=== PATIENT | female | born 1985 | race Caucasian/White ===

== ENCOUNTER 2016-09-21 11:01 | Emergency (ER) | payer MEDICAID, OTHER ==
[~2016-09-21] VITALS: Wt 57.0 kg
[~2016-09-21 11:01] MED LIST: ACET-915 PO
[2016-09-21] MEDS ORDERED: ONDANSETRON (ODT) 4 MG TAB ODT STA (11:58)
[2016-09-21] MEDS ORDERED: ACETAMINOPHEN 500 MG TAB PO STA (11:58)
[2016-09-21] MEDS ORDERED: FAMOTIDINE 20 MG TAB PO ONE (12:00)
--- NOTE | 2016-09-21 12:10 | ERD ---
ER Documentation Chief Complaint Date/Time DATE: 09/21/16 TIME: 12:08 Chief Complaint abd pain w n/v/d HPI This a 30-year-old female who presents to the emergency department today complaining of abdominal pain with vomiting and diarrhea for the past 2 days. States she is taking Pepto-Bismol with limited improvement in symptoms. States that she ate a street taco and started having abdominal pain and vomiting after that. Denies any fevers or chills, dysuria. ROS All systems reviewed and are negative except as per history of present illness. Medications Home Meds Active Scripts Loperamide Hcl* (Imodium*) 2 Mg Capsule, 2 MG PO .AFTER EA LOOSE BM Y for DIARRHEA, #6 TAB Prov:YANI KELLY PA-C 09/21/16 Dicyclomine Hcl* (Bentyl*) 10 Mg Capsule, 10 MG PO QID, #30 CAP Prov:YANI KELLY PA-C 09/21/16 Famotidine* (Pepcid*) 20 Mg Tablet, 20 MG PO BID for 10 Days, TAB Prov:YANI KELLY PA-C 09/21/16 Acetaminophen* (Tylophen*) 500 Mg Capsule, 1 CAP PO Q6H Y for PAIN AND OR ELEVATED TEMP, #30 CAP Prov:YANI KELLY PA-C 09/21/16 Ondansetron Hcl* (Zofran*) 4 Mg Tablet, 4 MG PO Q6H for NAUSEA AND/OR VOMITING, #30 TAB Prov:YANI KELLY PA-C 09/21/16 Reported Medications Acetaminophen* (Tylenol*) 325 Mg Tab, 325 MG PO Q8 05/27/12 Allergies Allergies: Coded Allergies: Pork/Porcine Containing Products (Verified Allergy, Unknown, 09/21/16) PMhx/Soc History of Surgery: Yes ( X 1) Anesthesia Reaction: No Hx Neurological Disorder: No Hx Respiratory Disorders: No Hx Cardiac Disorders: No Hx Psychiatric Problems: No Hx Miscellaneous Medical Probl: No Hx Alcohol Use: No Hx Substance Use: No Hx Tobacco Use: No Smoking Status: Never smoker Physical Exam Vitals Vital Signs Date Time Temp Pulse Resp B/P Pulse Ox O2 Delivery O2 Flow Rate FiO2 09/21/16 11:02 98.5 82 20 101/67 99 Physical Exam Const: No acute distress Head: Atraumatic Eyes: Normal Conjunctiva ENT: Normal External Ears, Nose and Mouth. Neck: Full range of motion..~ No meningismus. Resp: Clear to auscultation bilaterally Cardio: Regular rate and rhythm, no murmurs Abd: Soft, epigastric and periumbilical tenderness non distended. Normal bowel sounds. No right lower quadrant pain. No tenderness McBurney's. No left lower quadrant pain. Skin: No petechiae or rashes Neur: Awake and alert Psych: Normal Mood and Affect Results 24 hrs Laboratory Tests Test 09/21/16 12:14 Urine Color LT. YELLOW Urine Clarity CLEAR Urine pH 5.5 Urine Specific [place] 1.025 Urine Ketones NEGATIVE Urine Nitrite NEGATIVE Urine Bilirubin NEGATIVE Urine Urobilinogen 0.2 E.U./dL Urine Leukocyte Esterase NEGATIVE Urine Microscopic RBC 2-5/HPF Urine Microscopic WBC 0-2/HPF Urine Squamous Epithelial Cells MODERATE Urine Bacteria FEW Urine Hemoglobin 2+ Urine Glucose NEGATIVE% Urine Total Protein NEGATIVE Current Medications Medications (Trade) Dose Ordered Sig/Yady Route PRN Reason Start Time Stop Time Status Last Admin Dose Admin Ondansetron HCl (Zofran Odt) 4 mg ONCE STAT ODT 09/21/16 11:58 09/21/16 11:59 DC 09/21/16 12:08 Famotidine (Pepcid) 20 mg ONCE ONCE PO 09/21/16 12:00 09/21/16 12:01 DC 09/21/16 12:08 Acetaminophen (Tylenol Tab) 500 mg ONCE STAT PO 09/21/16 11:58 09/21/16 11:59 DC 09/21/16 12:08 Procedures/MDM This a 30-year-old female who presents the emergency department today complaining of abdominal pain, vomiting and diarrhea for the past 2 days that started after patient ate a street taco. Patient had epigastric and periumbilical pain on physical exam. She has no right lower quadrant pain. No tenderness McBurney's. No right upper quadrant pain. Low suspicion for acute surgical abdomen. Do not feel the patient requires laboratory workup or imaging at this time. I did obtain a UA and urine test UA is negative for infection. Urine test is negative Patient was given Zofran, Pepcid and Tylenol here in the emergency department and reported feeling better. She will be given a prescription for Pepcid, Tylenol, Zofran Bentyl and Imodium for home. At this time the patient is stable for discharge and outpatient management. Patient should follow up with their PCP in the next 1-2 days. They may return to the emergency department sooner for any persistent or worsening of symptoms. Patient understood and agreed with the plan. Departure Diagnosis: Primary Impression: Abdominal pain Abdominal location: epigastric Qualified Code: R10.13 - Epigastric pain Additional Impression: Nausea vomiting and diarrhea Condition: YANI Tapia PA-C Sep 21, 2016 12:10
[2016-09-21 12:36] LABS: ADD UMIC YES; URINE BILIRUBIN (Dip) NEGATIVE (NEGATIVE); URINE BLOOD (Dip) 2+ (NEGATIVE); URINE COLOR LT. YELLOW (YELLOW); URINE GLUCOSE (Dip) NEGATIVE (NEGATIVE); URINE KETONES (Dip) NEGATIVE (NEGATIVE); URINE LEUKOCYTE ESTERASE (Dip) NEGATIVE (NEGATIVE); URINE NITRITE (Dip) NEGATIVE (NEGATIVE); URINE TOTAL PROTEIN (Dip) NEGATIVE (NEGATIVE); URINE UROBILINOGEN (Dip) 0.2 E.U./dL (0.1-1.0)
[2016-09-21 13:18] LABS: BACTERIA,URINE FEW; SQUAMOUS EPITHELIAL CELL,UR MODERATE
[2016-09-21] MEDS ORDERED: DICY10CA60 PO (13:34)
[2016-09-21] MEDS ORDERED: FAMO-18 PO (13:34)
[2016-09-21] MEDS ORDERED: ONDA4TAB8 PO (13:34)
[2016-09-21] MEDS ORDERED: ACET500C5 PO (13:34)
[2016-09-21] MEDS ORDERED: LOPE2CAP PO (13:35)
== END 2016-09-21 14:00 | disposition home or self-care (01) ==
LOC: FTE 11:01
DX: R10.13 Epigastric pain (principal); R11.2 Nausea with vomiting, unspecified; R19.7 Diarrhea, unspecified
CPT/HCPCS: 81001; 99283